=== PATIENT | female | born 1950 | race African-American/Black ===

== ENCOUNTER 2019-02-21 13:16 | Emergency (ER) | payer MEDICARE ==
[~2019-02-21] VITALS: Ht 157.5 cm; Wt 56.0 kg
[2019-02-21 16:05] VITALS: BP 135/79
== END 2019-02-21 15:55 | disposition home or self-care (01) ==
LOC: ER 13:16
DX: R20.2 Paresthesia of skin (principal); R03.0 Elevated blood-pressure reading, without diagnosis of hypertension
CPT/HCPCS: 99283